=== PATIENT | female | born 1935 | race Caucasian/White ===

== ENCOUNTER → 2017-05-17 | Outpatient (CLI) | payer MEDICARE ==
[~2017-05-17] MED LIST: ALDACTONE25 MG PO; AMOXICILLIN 25250 M1 PO; APAP500 PO; APAP650; APAP650 PO; ATORVASTATIN CA20 MG PO; BACTRIM DS TAB1 EACH PO; BENTYL 10 MG CA10 M1; BIOTIN2500 MCG PO; BISACODYL SUPP10 MG RE; CALCIUM 600 +1 EA11 PO; CITRUCEL500 MG; COLLAGEN HYDROLY1 GM; COMBIGAN EYE DR10 ML OP; COUMADIN 4 MG TA4 M1 PO; CRANBERRY400 MG; FIBER0.52 G1 PO; FLORANEX TABLE1 EACH PO; FOSINOPRIL SODI40 M1 PO; GINKGO BILOBA120 M1 PO; HYDROCODONE-AP1 EAC6 PO; IRON325 PO; L-TRYPTOPHAN500 MG PO; LASIX 40 MG TAB40 M2; MACROBID 100 M100 M1 PO; MELATONIN10 M2 PO; MULTIVITAMINS1 EAC7 PO; NORCO 5-325 TA1 EACH PO; NORVASC 5 MG TAB5 MG PO; OCUVITE LUTEIN1 EAC1 PO; PROBIOTIC1 EAC1 PO; RESTASIS1 EACH OP; RESVERATROL1 GM; STOOL SOFTENER50 MG PO; TAMSULOSIN HCL0.4 M1 PO; TOPROL XL50 MG PO; TRAVOPROST 0.02.5 ML OP; TYLENOL PM PO; ULTRAM 50MG TAB50 MG PO; VITAMIN D-32000 UNIT PO; ZESTRIL40 MG; ZOFRAN4 MG PO
== END ==
LOC: M.ULTRA 04-19 12:37
DX: I25.10 Atherosclerotic heart disease of native coronary artery without angina pectoris (principal); M81.0 Age-related osteoporosis without current pathological fracture; M85.89 Other specified disorders of bone density and structure, multiple sites; I65.23 Occlusion and stenosis of bilateral carotid arteries; I70.90 Unspecified atherosclerosis; I77.9 Disorder of arteries and arterioles, unspecified; I10 Essential (primary) hypertension; Z78.0 Asymptomatic menopausal state

== ENCOUNTER → 2017-11-01 | Outpatient (CLI) | payer MEDICARE | LOC: M.RAD 10:53 | DX: Z12.31 Encounter for screening mammogram for malignant neoplasm of breast (principal); I10 Essential (primary) hypertension; E78.5 Hyperlipidemia, unspecified ==

== ENCOUNTER → 2017-12-17 | Outpatient (CLI) | payer MEDICARE | LOC: M.LAB 00:38 | DX: Z01.812 Encounter for preprocedural laboratory examination (principal) ==

== ENCOUNTER → 2018-11-03 | Outpatient (CLI) | payer MEDICARE | LOC: M.RAD 11-01 11:00 | DX: Z12.31 Encounter for screening mammogram for malignant neoplasm of breast (principal) ==

== ENCOUNTER → 2019-02-13 | Outpatient (CLI) | payer MEDICARE | LOC: M.RAD 12:29 | DX: M47.816 Spondylosis without myelopathy or radiculopathy, lumbar region (principal); M41.86 Other forms of scoliosis, lumbar region; G89.29 Other chronic pain ==

== ENCOUNTER → 2019-02-28 | Outpatient (CLI) | payer MEDICARE | LOC: M.CT 02-24 11:30 | DX: M41.86 Other forms of scoliosis, lumbar region (principal); M51.36 Other intervertebral disc degeneration, lumbar region; K57.30 Diverticulosis of large intestine without perforation or abscess without bleeding; K46.9 Unspecified abdominal hernia without obstruction or gangrene; M43.27 Fusion of spine, lumbosacral region; M43.8X4 Other specified deforming dorsopathies, thoracic region ==

== ENCOUNTER 2019-03-05 11:34 | Observation (INO) | payer MEDICARE ==
[~2019-03-05] VITALS: Ht 165.1 cm; Wt 82.6 kg
[~2019-03-05 11:34] MED LIST changes: -BENTYL 10 MG CA10 M1; +BENTYL 10 MG CA10 M1 PO; -BISACODYL SUPP10 MG RE; -CITRUCEL500 MG; +CITRUCEL500 MG PO; -CRANBERRY400 MG; +CRANBERRY400 MG PO; +DULCOLAX10 MG RECTAL; -NORVASC 5 MG TAB5 MG PO; +NORVASC5 MG PO; -RESVERATROL1 GM; +RESVERATROL1 GM PO; +STOOL SOFTENER100 M1 PO; -STOOL SOFTENER50 MG PO; -VITAMIN D-32000 UNIT PO; +VITAMIN D22000 UNIT PO; -ZESTRIL40 MG; +ZESTRIL40 MG PO
[2019-03-05 11:41] VITALS: BP 231/115
[2019-03-05 12:09] LABS: INFLUENZA A ANTIGEN Negative (Negative); INFLUENZA B ANTIGEN Negative (Negative)
[2019-03-05 12:21] LABS: ABSOLUTE EOSINOPHILS 0.1 thou/uL (0.0-0.7); ABSOLUTE LYMPHOCYTES 1.1 thou/uL (0.8-5.3); ABSOLUTE MONOCYTES 0.9 thou/uL (0.0-1.2); ABSOLUTE NEUTROPHILS 2.4 thou/uL (1.6-8.1); BASOPHILS 0.6 %; EOSINOPHILS 1.2 %; HEMATOCRIT 36.6 % (37.0-47.0); HEMOGLOBIN 12.5 gm/dL (12.0-15.0); LYMPHOCYTES 25.4 %; MCV 91.2 fL (80.0-100.0); MONOCYTES 19.8 %; MPV 7.6 fl. (7.2-11.1); NUCLEATED RBCS 0 /100WBC; PLATELET COUNT* 273 thou/uL (150-400); RBC 4.02 mil/uL (4.20-5.00); RDW-CV 13.1 % (10.5-14.5); WBC 4.5 thou/uL (4.0-11.0)
[2019-03-05 12:27] LABS: PROTIME 10.1 Seconds (9.20-11.50)
[2019-03-05 12:29] LABS: CALCIUM 7.8 mg/dL (8.5-10.1); CREATININE 0.8 mg/dL (0.6-1.3)
[2019-03-05 12:38] LABS: URINE BILIRUBIN NEGATIVE (Negative); URINE BLOOD NEGATIVE (Negative); URINE CLARITY CLEAR; URINE COLOR YELLOW; URINE GLUCOSE-RANDOM NEGATIVE (Negative); URINE KETONES 1+ (Negative); URINE LEUKOCYTES-REFLEX NEGATIVE (Negative); URINE NITRITE-REFLEX NEGATIVE (Negative); URINE PROTEIN NEGATIVE (Negative); URINE UROBILINOGEN 0.2 E.U./dl (0.2-1.0)
[2019-03-05 12:42] LABS: TOTAL BILIRUBIN 0.2 mg/dL (<0.1-1.0); TOTAL PROTEIN 6.4 g/dL (6.4-8.2)
[2019-03-05 17:21] VITALS: BP 193/98
[2019-03-05 18:00] VITALS: BP 160/77
[2019-03-05 19:30] VITALS: BP 180/70
[2019-03-06] VITALS: BP 140/64
[2019-03-06 05:47] LABS: ABSOLUTE LYMPHOCYTES 0.7 thou/uL (0.8-5.3); ABSOLUTE MONOCYTES 0.2 thou/uL (0.0-1.2); ABSOLUTE NEUTROPHILS 3.5 thou/uL (1.6-8.1); BASOPHILS 0.1 %; HEMATOCRIT 37.8 % (37.0-47.0); LYMPHOCYTES 16.2 %; MCH 31.1 pg (26.0-34.0); MCHC 34.4 g/dL (28.0-37.0); MCV 90.3 fL (80.0-100.0); MONOCYTES 5.1 %; MPV 8.1 fl. (7.2-11.1); NUCLEATED RBCS 0 /100WBC; PLATELET COUNT* 298 thou/uL (150-400); POLYS 78.6 %; RBC 4.19 mil/uL (4.20-5.00); RDW-CV 12.9 % (10.5-14.5); WBC 4.5 thou/uL (4.0-11.0)
[2019-03-06 05:58] LABS: CALCIUM 7.9 mg/dL (8.5-10.1); CREATININE 0.6 mg/dL (0.6-1.3); POTASSIUM 4.3 mmol/L (3.5-5.1)
[2019-03-06 07:10] VITALS: BP 192/75
--- NOTE | 2019-03-06 10:12 | EKG ---
[place] [address] ELECTROCARDIOGRAM REPORT Name: ERNESTO LAM Room: [address] ADM IN M.R.#: [id number] Admission: 03/05/19 Attend Phys: Pedro Devlin Discharge: Date of : 33 Report #: [id number] THIS REPORT FOR: //name// [facility] ED Test Date: 2019-03-05 Test Time: 12:03:10 Pat Name: ERNESTO WYATT Department: Room: [facility] Gender: F Med Dir: : 1935 Requested By: Bulmaro Feng Order Number: [id number] MD: Altaf Cobian Measurements Intervals [place] Rate: 69 P: 39 [place]: 170 QRS: -30 QRSD: 88 T: 14 QT: 369 QTc: 396 Interpretive Statements Sinus rhythm Left axis deviation Borderline T abnormalities, anterior leads Compared to ECG 03/23/2015 19:41:50 no change Electronically Signed On 03-06-2019 10:11:30 VOICE SYSTEMS ENGINEER by Altaf Cobian [email or web address] <ELECTRONICALLY SIGNED> By: Altaf Cobian MD, [facility] 03/06/19 1011 1203 1203 Altaf Cobian MD, [facility] /EPI
[2019-03-06 12:05] VITALS: BP 192/75
[2019-03-06] MEDS ORDERED: PROAIR HFA8.5 GM INH (14:14)
[2019-03-06] MEDS ORDERED: MUCINEX1200 MG PO (14:14)
[2019-03-06] MEDS ORDERED: MEDROL DOSPAK21 TA1 PO (14:14)
[2019-03-06 15:07] VITALS: BP 192/75
== END 2019-03-06 15:05 | disposition home or self-care (01) ==
LOC: M.ERS 11:34 → M.3W 13:35 → M.TBA-ER 13:35 → M.3W 17:38
PROVIDERS: Family Medicine; ADMIT Family Medicine
DX: J06.9 Acute upper respiratory infection, unspecified (principal); R53.1 Weakness; E86.0 Dehydration; I10 Essential (primary) hypertension; E78.5 Hyperlipidemia, unspecified; K59.00 Constipation, unspecified; H40.9 Unspecified glaucoma; Z87.891 Personal history of nicotine dependence

== ENCOUNTER → 2019-11-06 | Outpatient (CLI) | payer MEDICARE ==
[~2019-11-06] MED LIST changes: +MEDROL DOSPAK21 TA1 PO; +MUCINEX1200 MG PO; +PROAIR HFA8.5 GM INH
== END ==
LOC: M.RAD 12:35
PROVIDERS: ATTEND Internal Medicine
DX: Z12.31 Encounter for screening mammogram for malignant neoplasm of breast (principal)

== ENCOUNTER → 2020-02-26 | Outpatient (CLI) | payer MEDICARE ==
[~2020-02-26] MED LIST changes: +IBUPROFEN 400400 M1 PO; +POTASSIUM99 M1 PO; +TYLENOL325 M1 PO
== END ==
LOC: M.PC 09:50
PROVIDERS: ATTEND Physical Medicine & Rehabilitation
DX: M16.12 Unilateral primary osteoarthritis, left hip (principal); M41.86 Other forms of scoliosis, lumbar region; M48.061 Spinal stenosis, lumbar region without neurogenic claudication; M25.78 Osteophyte, vertebrae; M16.0 Bilateral primary osteoarthritis of hip; M47.816 Spondylosis without myelopathy or radiculopathy, lumbar region; Z96.641 Presence of right artificial hip joint

== ENCOUNTER → 2020-03-04 | Outpatient (CLI) | payer MEDICARE | END | disposition home or self-care (01) | LOC: M.PC 08:22 | PROVIDERS: ATTEND Physical Medicine & Rehabilitation | DX: M53.3 Sacrococcygeal disorders, not elsewhere classified (principal); M46.1 Sacroiliitis, not elsewhere classified ==

== ENCOUNTER → 2020-04-22 | Outpatient (CLI) | payer MEDICARE | LOC: M.PC 04-08 09:00 | PROVIDERS: ATTEND Physical Medicine & Rehabilitation | DX: M47.816 Spondylosis without myelopathy or radiculopathy, lumbar region (principal); M53.3 Sacrococcygeal disorders, not elsewhere classified ==

== ENCOUNTER → 2020-08-19 | Outpatient (CLI) | payer MEDICARE | LOC: M.CT 13:43 | PROVIDERS: ATTEND Internal Medicine | DX: K44.9 Diaphragmatic hernia without obstruction or gangrene (principal); R10.32 Left lower quadrant pain; J98.11 Atelectasis; M54.5 Low back pain; M47.815 Spondylosis without myelopathy or radiculopathy, thoracolumbar region; Z96.641 Presence of right artificial hip joint ==

== ENCOUNTER 2020-10-28 10:44 | Inpatient (IN) | payer MEDICARE ==
[~2020-10-28] VITALS: Ht 154.9 cm; Wt 82.6 kg
[~2020-10-28 10:44] MED LIST changes: -LASIX 40 MG TAB40 M2; +LASIX 40 MG TAB40 M2 PO; -MULTIVITAMINS1 EAC7 PO; +SUPER THERAVIT1 EACH PO
[2020-10-28 10:52] VITALS: BP 167/88
[2020-10-28] MEDS ORDERED: PRILOSEC OTC20 MG PO (10:57)
[2020-10-28] MEDS ORDERED: LIPITOR20 MG PO (10:58)
[2020-10-28] MEDS ORDERED: TOPROL XL25 MG PO (10:58)
[2020-10-28 11:21] LABS: ABSOLUTE BASOPHILS 0.1 thou/uL (0.0-0.2); ABSOLUTE MONOCYTES 1.3 thou/uL (0.0-1.2); BASOPHILS 0.6 %; HEMOGLOBIN 13.1 gm/dL (12.0-15.0); LYMPHOCYTES 7.7 %; MCH 29.7 pg (26.0-34.0); MCHC 32.8 g/dL (28.0-37.0); MCV 90.6 fL (80.0-100.0); MONOCYTES 9.8 %; MPV 7.5 fl. (7.2-11.1); NUCLEATED RBCS 0 /100WBC; PLATELET COUNT* 284 thou/uL (150-400); POLYS 81.9 %; RBC 4.42 mil/uL (4.20-5.00); RDW-CV 13.7 % (10.5-14.5); WBC 13.4 thou/uL (4.0-11.0)
[2020-10-28 11:30] LABS: CALCIUM 8.8 mg/dL (8.5-10.1); CREATININE 0.7 mg/dL (0.6-1.3); POTASSIUM 4.4 mmol/L (3.5-5.1)
[2020-10-28 11:33] LABS: URINE BILIRUBIN NEGATIVE (Negative); URINE BLOOD 1+ (Negative); URINE CLARITY SL CLOUDY; URINE COLOR YELLOW; URINE GLUCOSE-RANDOM NEGATIVE (Negative); URINE KETONES 3+ (Negative); URINE LEUKOCYTES-REFLEX 2+ (Negative); URINE NITRITE-REFLEX POSITIVE (Negative); URINE PROTEIN 1+ (Negative); URINE SPECIFIC GRAVITY 1.025 (1.005-1.030); URINE UROBILINOGEN 0.2 E.U./dl (0.2-1.0)
[2020-10-28 11:52] LABS: BACTERIA-REFLEX >30 Many /HPF (None Seen); SQUAMOUS 0-3 Few /LPF (0-3); URINE RBC 3-10 Few /HPF (0-2)
[2020-10-28] MEDS ORDERED: FISH OIL 1,0001 EAC9 PO (11:52)
[2020-10-28 11:53] LABS: CASTS None Seen /LPF (None Seen); CRYSTALS None Seen /LPF (None Seen); MUCUS 0-3 Light strn/LPF (None Seen)
[2020-10-28] MEDS ORDERED: VITAMIN C1000 MG PO (12:00)
[2020-10-28] MEDS ORDERED: CALCIUM D-GLUC500 MG PO (12:01)
[2020-10-28] MEDS ORDERED: CRANBERRY CONC500 MG PO (12:03)
[2020-10-28] MEDS ORDERED: IBUPROFEN 600600 M1 PO (12:06)
[2020-10-28] MEDS ORDERED: COQ-10100 MG PO (12:07)
[2020-10-28] MEDS ORDERED: PROBIOTIC1 EAC7 PO (12:08)
[2020-10-28] MEDS ORDERED: BENTYL 10 MG CA10 M1 PO (12:09)
[2020-10-28] MEDS ORDERED: CITRUCEL479 GM PO (12:11)
[2020-10-28] MEDS ORDERED: CURCUMIN1 GM PO (12:12)
[2020-10-28] MEDS ORDERED: COLESTIPOL HCL1 G1 PO (12:13)
[2020-10-28] MEDS ORDERED: FOCUS FACTOR PO (12:14)
[2020-10-28] MEDS ORDERED: FOSAMAX 70 MG T70 MG PO (12:15)
[2020-10-28] MEDS ORDERED: TYLENOL PM EX-1 EACH PO (12:22)
[2020-10-28] MEDS ORDERED: VYZULTA5 ML OPHTHALMIC (12:22)
--- NOTE | 2020-10-28 12:53 | EKG ---
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 : 1935 Requested By: Chuck Vargas Order Number: [id number] MD: Oren Kincaid Measurements Intervals [place] Rate: 115 P: 60 [place]: 170 QRS: 33 QRSD: 109 T: 38 QT: 311 QTc: 430 Interpretive Statements Sinus tachycardia Premature ventricular complexes Borderline low voltage, extremity leads Baseline wander in lead(s) III,aVF Compared to ECG 03/05/2019 12:03:10 Left-axis deviation no longer present T-wave abnormality no longer present Electronically Signed On 10-28-2020 12:53:26 CDT by Oren Kincaid [email or web address] <ELECTRONICALLY SIGNED> By: Oren Kincaid MD, FACC 10/28/20 1253 1059 1059 Oren Kincaid MD, [facility] /EPI
[2020-10-28 16:45] VITALS: BP 143/65
[2020-10-28 20:29] VITALS: BP 132/68
[2020-10-28 21:10] VITALS: BP 132/68
[2020-10-28 21:40] VITALS: BP 135/72
[2020-10-29] VITALS (7 sets, daily range): BP systolic 118–169; BP diastolic 49–81
[2020-10-29] MEDS ORDERED: TIMOLOL 0.5%-DO10 ML EA. EYE (00:13)
[2020-10-29 07:39] LABS: CALCIUM 8.1 mg/dL (8.5-10.1); CREATININE 0.7 mg/dL (0.6-1.3); POTASSIUM 3.7 mmol/L (3.5-5.1)
[2020-10-29 07:42] LABS: MAGNESIUM 2.2 mg/dL (1.8-2.4)
[2020-10-29 15:49] LABS: ABSOLUTE LYMPHOCYTES 0.7 thou/uL (0.8-5.3); ABSOLUTE MONOCYTES 1.6 thou/uL (0.0-1.2); ABSOLUTE NEUTROPHILS 10.5 thou/uL (1.6-8.1); BASOPHILS 0.3 %; EOSINOPHILS 0.1 %; HEMATOCRIT 33.1 % (37.0-47.0); LYMPHOCYTES 5.3 %; MCHC 33.2 g/dL (28.0-37.0); MCV 90.3 fL (80.0-100.0); MONOCYTES 12.6 %; MPV 7.6 fl. (7.2-11.1); NUCLEATED RBCS 0 /100WBC; PLATELET COUNT* 253 thou/uL (150-400); POLYS 81.7 %; RBC 3.66 mil/uL (4.20-5.00); RDW-CV 13.7 % (10.5-14.5); WBC 12.8 thou/uL (4.0-11.0)
[2020-10-30 03:46] VITALS: BP 137/60
[2020-10-30 08:03] VITALS: BP 184/85
[2020-10-30 11:48] VITALS: BP 163/79
[2020-10-30 16:00] VITALS: BP 175/97
[2020-10-30 20:00] VITALS: BP 171/84
[2020-10-31] VITALS: BP 150/72
[2020-10-31 04:07] VITALS: BP 165/82
[2020-10-31 07:24] LABS: ABSOLUTE EOSINOPHILS 0.3 thou/uL (0.0-0.7); ABSOLUTE LYMPHOCYTES 1.1 thou/uL (0.8-5.3); ABSOLUTE MONOCYTES 1.1 thou/uL (0.0-1.2); ABSOLUTE NEUTROPHILS 7.1 thou/uL (1.6-8.1); BASOPHILS 0.4 %; EOSINOPHILS 3.1 %; HEMATOCRIT 34.6 % (37.0-47.0); HEMOGLOBIN 11.3 gm/dL (12.0-15.0); LYMPHOCYTES 11.7 %; MCH 29.4 pg (26.0-34.0); MCHC 32.7 g/dL (28.0-37.0); MCV 89.9 fL (80.0-100.0); MONOCYTES 11.2 %; MPV 7.7 fl. (7.2-11.1); NUCLEATED RBCS 0 /100WBC; PLATELET COUNT* 315 thou/uL (150-400); POLYS 73.6 %; RBC 3.85 mil/uL (4.20-5.00); RDW-CV 13.4 % (10.5-14.5); WBC 9.7 thou/uL (4.0-11.0)
[2020-10-31 07:37] LABS: CALCIUM 8.4 mg/dL (8.5-10.1); CREATININE 0.6 mg/dL (0.6-1.3); POTASSIUM 3.7 mmol/L (3.5-5.1)
[2020-10-31 08:00] VITALS: BP 164/78
[2020-10-31 12:00] VITALS: BP 166/83
[2020-10-31 16:00] VITALS: BP 168/75
[2020-10-31 20:00] VITALS: BP 170/71
[2020-11-01 01:19] VITALS: BP 153/79
[2020-11-01 04:53] VITALS: BP 173/84
[2020-11-01 08:30] LABS: ABSOLUTE BASOPHILS 0.1 thou/uL (0.0-0.2); ABSOLUTE EOSINOPHILS 0.3 thou/uL (0.0-0.7); ABSOLUTE LYMPHOCYTES 0.8 thou/uL (0.8-5.3); ABSOLUTE NEUTROPHILS 7.1 thou/uL (1.6-8.1); BASOPHILS 0.6 %; EOSINOPHILS 3.3 %; HEMATOCRIT 34.7 % (37.0-47.0); HEMOGLOBIN 11.5 gm/dL (12.0-15.0); LYMPHOCYTES 8.5 %; MCH 29.6 pg (26.0-34.0); MCHC 33.2 g/dL (28.0-37.0); MCV 89.3 fL (80.0-100.0); MONOCYTES 10.7 %; MPV 7.6 fl. (7.2-11.1); NUCLEATED RBCS 0 /100WBC; PLATELET COUNT* 337 thou/uL (150-400); POLYS 76.9 %; RBC 3.89 mil/uL (4.20-5.00); RDW-CV 13.6 % (10.5-14.5); WBC 9.2 thou/uL (4.0-11.0)
[2020-11-01 09:20] LABS: ALBUMIN 2.2 g/dL (3.4-5.0); CALCIUM 8.4 mg/dL (8.5-10.1); CREATININE 0.5 mg/dL (0.6-1.3); TOTAL BILIRUBIN 0.3 mg/dL (<0.1-1.0)
[2020-11-01 12:25] VITALS: BP 145/80
[2020-11-01 17:03] VITALS: BP 158/66
[2020-11-01 20:00] VITALS: BP 163/83
[2020-11-02 00:26] VITALS: BP 129/63
[2020-11-02 04:29] VITALS: BP 183/81
[2020-11-02 08:00] VITALS: BP 137/61
[2020-11-02 11:31] LABS: ALBUMIN 2.5 g/dL (3.4-5.0); CALCIUM 8.4 mg/dL (8.5-10.1); CREATININE 0.7 mg/dL (0.6-1.3); POTASSIUM 3.9 mmol/L (3.5-5.1); TOTAL BILIRUBIN 0.2 mg/dL (<0.1-1.0); TOTAL PROTEIN 5.6 g/dL (6.4-8.2)
[2020-11-02 12:03] LABS: HEMATOCRIT 33.7 % (37.0-47.0); HEMOGLOBIN 11.3 gm/dL (12.0-15.0); MCH 29.7 pg (26.0-34.0); MCHC 33.4 g/dL (28.0-37.0); MCV 89.1 fL (80.0-100.0); MPV 7.2 fl. (7.2-11.1); NUCLEATED RBCS 0 /100WBC; PLATELET COUNT* 348 thou/uL (150-400); RBC 3.78 mil/uL (4.20-5.00); RDW-CV 13.7 % (10.5-14.5); WBC 13.6 thou/uL (4.0-11.0)
[2020-11-02 12:23] VITALS: BP 164/72
[2020-11-02 12:23] LABS: ABSOLUTE MONOCYTES 1.4 thou/uL (0.0-1.2); ABSOLUTE NEUTROPHILS 11.3 thou/uL (1.6-8.1)
[2020-11-02 12:24] LABS: PLATELET ESTIMATE ADEQUATE
[2020-11-02 17:35] VITALS: BP 154/73
[2020-11-02 20:40] VITALS: BP 155/75
[2020-11-03] VITALS: BP 157/76
[2020-11-03 04:00] VITALS: BP 162/70
[2020-11-03 04:30] LABS: ALBUMIN 2.2 g/dL (3.4-5.0); CALCIUM 8.3 mg/dL (8.5-10.1); CREATININE 0.6 mg/dL (0.6-1.3); POTASSIUM 3.5 mmol/L (3.5-5.1); TOTAL BILIRUBIN 0.2 mg/dL (<0.1-1.0); TOTAL PROTEIN 5.9 g/dL (6.4-8.2)
[2020-11-03 04:31] LABS: ABSOLUTE EOSINOPHILS 0.1 thou/uL (0.0-0.7); ABSOLUTE LYMPHOCYTES 1.1 thou/uL (0.8-5.3); ABSOLUTE MONOCYTES 1.5 thou/uL (0.0-1.2); ABSOLUTE NEUTROPHILS 14.3 thou/uL (1.6-8.1); BASOPHILS 0.3 %; EOSINOPHILS 0.5 %; HEMATOCRIT 33.3 % (37.0-47.0); HEMOGLOBIN 10.8 gm/dL (12.0-15.0); LYMPHOCYTES 6.2 %; MCHC 32.5 g/dL (28.0-37.0); MCV 89.2 fL (80.0-100.0); MONOCYTES 8.8 %; MPV 7.6 fl. (7.2-11.1); NUCLEATED RBCS 0 /100WBC; PLATELET COUNT* 374 thou/uL (150-400); POLYS 84.2 %; RBC 3.73 mil/uL (4.20-5.00); RDW-CV 13.8 % (10.5-14.5)
[2020-11-03 05:22] LABS: PREALBUMIN 10.5 mg/dL (18.0-35.7)
[2020-11-03 08:00] VITALS: BP 145/72
[2020-11-03 12:17] VITALS: BP 148/71
[2020-11-03 17:09] VITALS: BP 143/71
[2020-11-03 21:00] VITALS: BP 147/67
[2020-11-04] VITALS (7 sets, daily range): BP systolic 139–166; BP diastolic 52–78
[2020-11-04 05:06] LABS: ALBUMIN 1.9 g/dL (3.4-5.0); CALCIUM 7.9 mg/dL (8.5-10.1); CREATININE 0.6 mg/dL (0.6-1.3); POTASSIUM 3.7 mmol/L (3.5-5.1); TOTAL BILIRUBIN 0.2 mg/dL (<0.1-1.0); TOTAL PROTEIN 5.7 g/dL (6.4-8.2)
[2020-11-04 05:07] LABS: ABSOLUTE BASOPHILS 0.1 thou/uL (0.0-0.2); ABSOLUTE EOSINOPHILS 0.2 thou/uL (0.0-0.7); ABSOLUTE LYMPHOCYTES 1.2 thou/uL (0.8-5.3); ABSOLUTE MONOCYTES 1.1 thou/uL (0.0-1.2); ABSOLUTE NEUTROPHILS 12.6 thou/uL (1.6-8.1); BASOPHILS 0.4 %; EOSINOPHILS 1.1 %; HEMOGLOBIN 10.4 gm/dL (12.0-15.0); LYMPHOCYTES 8.2 %; MCHC 32.6 g/dL (28.0-37.0); MONOCYTES 7.2 %; MPV 7.9 fl. (7.2-11.1); NUCLEATED RBCS 0 /100WBC; PLATELET COUNT* 385 thou/uL (150-400); POLYS 83.1 %; RDW-CV 13.7 % (10.5-14.5); WBC 15.2 thou/uL (4.0-11.0)
[2020-11-05 04:16] LABS: HEMATOCRIT 31.9 % (37.0-47.0); HEMOGLOBIN 10.6 gm/dL (12.0-15.0); MCH 29.6 pg (26.0-34.0); MCHC 33.4 g/dL (28.0-37.0); MCV 88.5 fL (80.0-100.0); MPV 7.4 fl. (7.2-11.1); RBC 3.6 mil/uL (4.20-5.00); RDW-CV 13.6 % (10.5-14.5); WBC 10.7 thou/uL (4.0-11.0)
[2020-11-05 04:31] VITALS: BP 139/62
[2020-11-05 04:35] LABS: CALCIUM 8.1 mg/dL (8.5-10.1); CREATININE 0.5 mg/dL (0.6-1.3); POTASSIUM 3.4 mmol/L (3.5-5.1)
[2020-11-05 08:00] VITALS: BP 153/74
[2020-11-05 12:26] VITALS: BP 156/72
[2020-11-05 15:43] VITALS: BP 137/56
[2020-11-05 20:29] VITALS: BP 150/71
[2020-11-06 00:06] VITALS: BP 129/61
[2020-11-06 04:35] LABS: HEMATOCRIT 32.4 % (37.0-47.0); HEMOGLOBIN 10.9 gm/dL (12.0-15.0); MCH 29.6 pg (26.0-34.0); MCHC 33.6 g/dL (28.0-37.0); MCV 88.3 fL (80.0-100.0); MPV 7.6 fl. (7.2-11.1); RBC 3.67 mil/uL (4.20-5.00); RDW-CV 13.9 % (10.5-14.5)
[2020-11-06 04:41] VITALS: BP 148/68
[2020-11-06 05:00] LABS: CREATININE 0.5 mg/dL (0.6-1.3); POTASSIUM 3.5 mmol/L (3.5-5.1)
[2020-11-06 08:00] VITALS: BP 162/77
[2020-11-06 11:20] VITALS: BP 140/70
[2020-11-06 18:14] VITALS: BP 163/70
[2020-11-06 20:00] VITALS: BP 162/69
[2020-11-07] VITALS (7 sets, daily range): BP systolic 132–150; BP diastolic 64–74
[2020-11-07 04:12] LABS: HEMATOCRIT 33.8 % (37.0-47.0); HEMOGLOBIN 11.2 gm/dL (12.0-15.0); MCH 29.5 pg (26.0-34.0); MCHC 33.2 g/dL (28.0-37.0); MCV 88.9 fL (80.0-100.0); MPV 7.5 fl. (7.2-11.1); RBC 3.8 mil/uL (4.20-5.00); RDW-CV 13.8 % (10.5-14.5); WBC 9.4 thou/uL (4.0-11.0)
[2020-11-07 04:26] LABS: CREATININE 0.6 mg/dL (0.6-1.3); POTASSIUM 3.5 mmol/L (3.5-5.1)
[2020-11-08 01:10] VITALS: BP 147/63
[2020-11-08 05:23] VITALS: BP 144/67
[2020-11-08 08:00] VITALS: BP 138/75
[2020-11-08 12:00] VITALS: BP 124/65
[2020-11-08 17:00] VITALS: BP 141/72
[2020-11-08 20:00] VITALS: BP 144/73
[2020-11-09 00:48] VITALS: BP 121/60
[2020-11-09 06:20] VITALS: BP 137/63
[2020-11-09 08:30] VITALS: BP 164/63
[2020-11-09 12:00] VITALS: BP 140/75
[2020-11-09 14:34] LABS: HEMATOCRIT 36.5 % (37.0-47.0); MCH 29.2 pg (26.0-34.0); MCHC 32.7 g/dL (28.0-37.0); MCV 89.1 fL (80.0-100.0); MPV 7.5 fl. (7.2-11.1); NUCLEATED RBCS 0 /100WBC; PLATELET COUNT* 589 thou/uL (150-400); RDW-CV 14.2 % (10.5-14.5); WBC 15.7 thou/uL (4.0-11.0)
[2020-11-09 14:42] LABS: ALBUMIN 2.5 g/dL (3.4-5.0); CALCIUM 8.2 mg/dL (8.5-10.1); CREATININE 0.7 mg/dL (0.6-1.3); MAGNESIUM 1.6 mg/dL (1.8-2.4); POTASSIUM 3.8 mmol/L (3.5-5.1); TOTAL BILIRUBIN 0.2 mg/dL (<0.1-1.0); TOTAL PROTEIN 6.2 g/dL (6.4-8.2)
[2020-11-09 15:08] LABS: ABSOLUTE EOSINOPHILS 0.2 thou/uL (0.0-0.7); ABSOLUTE LYMPHOCYTES 2.2 thou/uL (0.8-5.3); ABSOLUTE MONOCYTES 0.9 thou/uL (0.0-1.2); ABSOLUTE NEUTROPHILS 12.4 thou/uL (1.6-8.1); PLATELET ESTIMATE INCREASED
[2020-11-09 16:00] VITALS: BP 159/78
[2020-11-09 20:00] VITALS: BP 144/67
[2020-11-10] VITALS (7 sets, daily range): BP systolic 118–151; BP diastolic 63–82
[2020-11-10] MEDS ORDERED: FUROSEMIDE 20 M20 MG PO (17:16)
[2020-11-10] MEDS ORDERED: LEVOTHYROXINE125 MC1 PO (17:19)
[2020-11-11 03:51] VITALS: BP 130/70
[2020-11-11 04:19] LABS: HEMATOCRIT 33.4 % (37.0-47.0); HEMOGLOBIN 11.1 gm/dL (12.0-15.0); MCH 29.6 pg (26.0-34.0); MCHC 33.2 g/dL (28.0-37.0); MCV 89.2 fL (80.0-100.0); MPV 7.5 fl. (7.2-11.1); RBC 3.75 mil/uL (4.20-5.00); RDW-CV 14.1 % (10.5-14.5); WBC 8.3 thou/uL (4.0-11.0)
[2020-11-11 04:35] LABS: ALBUMIN 2.1 g/dL (3.4-5.0); CALCIUM 8.2 mg/dL (8.5-10.1); CREATININE 0.8 mg/dL (0.6-1.3); MAGNESIUM 1.6 mg/dL (1.8-2.4); POTASSIUM 4.1 mmol/L (3.5-5.1); TOTAL BILIRUBIN 0.2 mg/dL (<0.1-1.0); TOTAL PROTEIN 5.3 g/dL (6.4-8.2)
[2020-11-11 07:40] VITALS: BP 131/64
[2020-11-11 12:45] VITALS: BP 115/63
[2020-11-11 18:26] VITALS: BP 114/62
[2020-11-11 19:45] VITALS: BP 147/66
[2020-11-12 00:33] VITALS: BP 116/55
[2020-11-12 04:40] VITALS: BP 113/57
[2020-11-12 08:30] VITALS: BP 144/68
[2020-11-12] MEDS ORDERED: XANAX 0.25 MG0.25 MG PO (09:22)
[2020-11-12] MEDS ORDERED: ACIDOPHILUS1 EAC4 PO (09:22)
[2020-11-12] MEDS ORDERED: VANCOMYCIN HCL125 MG PO (09:22)
[2020-11-12] MEDS ORDERED: COLESTID1 GM PO (09:22)
[2020-11-12 12:55] VITALS: BP 113/57
[2020-11-12 12:59] VITALS: BP 113/57
[2020-11-12 13:05] VITALS: BP 113/57
== END 2020-11-12 13:15 | disposition home health service (06) | DRG 871 ==
LOC: M.ERS 10:44 → M.TBA-ER 12:35 → M.2W 12:35
PROVIDERS: Emergency Medicine Emergency Medical Services; Internal Medicine; ADMIT Internal Medicine; ATTEND Internal Medicine
PROC: 5A0935A Assistance with Respiratory Ventilation, Less than 24 Consecutive Hours, High Flow/Velocity Cannula (ICD-10-PCS; principal; 2020-10-30)
DX: A41.51 Sepsis due to Escherichia coli [E. coli] (principal); J18.9 Pneumonia, unspecified organism; N39.0 Urinary tract infection, site not specified; A04.72 Enterocolitis due to Clostridium difficile, not specified as recurrent; K57.32 Diverticulitis of large intestine without perforation or abscess without bleeding; I10 Essential (primary) hypertension; E78.5 Hyperlipidemia, unspecified; Z88.8 Allergy status to other drugs, medicaments and biological substances; Z20.822 Contact with and (suspected) exposure to COVID-19; K58.9 Irritable bowel syndrome, unspecified; Z87.81 Personal history of (healed) traumatic fracture

== ENCOUNTER 2021-02-05 11:06 | Emergency (ER) | payer MEDICARE ==
[~2021-02-05] VITALS: Ht 154.9 cm; Wt 79.4 kg
[~2021-02-05 11:06] MED LIST changes: +ACIDOPHILUS1 EAC4 PO; +CALCIUM D-GLUC500 MG PO; +CITRUCEL479 GM PO; +COLESTID1 GM PO; +COLESTIPOL HCL1 G1 PO; +COQ-10100 MG PO; +CRANBERRY CONC500 MG PO; +CURCUMIN1 GM PO; +FISH OIL 1,0001 EAC9 PO; +FOCUS FACTOR PO; +FOSAMAX 70 MG T70 MG PO; +FUROSEMIDE 20 M20 MG PO; +IBUPROFEN 600600 M1 PO; +LEVOTHYROXINE125 MC1 PO; +LIPITOR20 MG PO; +PRILOSEC OTC20 MG PO; +PROBIOTIC1 EAC7 PO; +TIMOLOL 0.5%-DO10 ML EA. EYE; +TOPROL XL25 MG PO; +TYLENOL PM EX-1 EACH PO; +VANCOMYCIN HCL125 MG PO; +VITAMIN C1000 MG PO; +VYZULTA5 ML OPHTHALMIC; +XANAX 0.25 MG0.25 MG PO
[2021-02-05] MEDS ORDERED: PROAIR HFA8.5 GM INH (11:27)
[2021-02-05 12:13] LABS: ABSOLUTE EOSINOPHILS 0.1 thou/uL (0.0-0.7); ABSOLUTE LYMPHOCYTES 1.4 thou/uL (0.8-5.3); ABSOLUTE MONOCYTES 0.7 thou/uL (0.0-1.2); ABSOLUTE NEUTROPHILS 5.7 thou/uL (1.6-8.1); BASOPHILS 0.6 %; EOSINOPHILS 1.1 %; HEMATOCRIT 39.8 % (37.0-47.0); HEMOGLOBIN 13.1 gm/dL (12.0-15.0); LYMPHOCYTES 17.4 %; MCH 29.2 pg (26.0-34.0); MCHC 32.9 g/dL (28.0-37.0); MCV 88.9 fL (80.0-100.0); MONOCYTES 8.8 %; MPV 7.5 fl. (7.2-11.1); NUCLEATED RBCS 0 /100WBC; PLATELET COUNT* 335 thou/uL (150-400); POLYS 72.1 %; RBC 4.48 mil/uL (4.20-5.00); RDW-CV 13.7 % (10.5-14.5); WBC 7.8 thou/uL (4.0-11.0)
[2021-02-05 12:45] LABS: CALCIUM 8.8 mg/dL (8.5-10.1); CREATININE 0.6 mg/dL (0.6-1.3); POTASSIUM 3.3 mmol/L (3.5-5.1)
[2021-02-05 12:48] LABS: TOTAL BILIRUBIN 0.4 mg/dL (<0.1-1.0); TOTAL PROTEIN 6.9 g/dL (6.4-8.2)
[2021-02-05 13:40] LABS: URINE BLOOD NEGATIVE (Negative); URINE CLARITY CLEAR; URINE COLOR YELLOW; URINE GLUCOSE-RANDOM NEGATIVE (Negative); URINE KETONES 2+ (Negative); URINE LEUKOCYTES NEGATIVE (Negative); URINE NITRITE NEGATIVE (Negative); URINE PROTEIN 2+ (Negative); URINE SPECIFIC GRAVITY 1.025 (1.005-1.030); URINE UROBILINOGEN 0.2 E.U./dl (0.2-1.0)
[2021-02-05 13:43] LABS: MAGNESIUM 1.8 mg/dL (1.8-2.4)
[2021-02-05 13:44] LABS: ICTOTEST (BILI CONFIRMATORY) Negative (Negative); URINE BILIRUBIN 2+ (Negative)
[2021-02-05 13:52] LABS: BACTERIA 1-9 Few /HPF (None Seen); MUCUS 4-6 Moderate strn/LPF (None Seen); SQUAMOUS >10 Many /LPF (0-3); URINE RBC 0-2 Rare /HPF (0-2); URINE WBC 0-5 Rare /HPF (0-5)
[2021-02-05 13:53] LABS: HYALINE CASTS 4-10 Moderate /LPF (None Seen)
[2021-02-05 13:54] LABS: CRYSTALS None Seen /LPF (None Seen)
[2021-02-05 15:25] VITALS: BP 182/87
--- NOTE | 2021-02-06 11:17 | EKG ---
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: : 1935 Requested By: Hazel Gaston Order Number: [id number] MD: Omsel Guerrero Measurements Intervals [place] Rate: 88 P: 32 [place]: 144 QRS: 0 QRSD: 93 T: 13 QT: 394 QTc: 477 Interpretive Statements Sinus rhythm Atrial premature complexes Borderline T abnormalities, anterior leads Borderline prolonged QT interval Baseline wander in lead(s) I,II,aVR Compared to ECG 10/28/2020 10:59:32 Atrial premature complex(es) now present T-wave abnormality now present Sinus tachycardia no longer present Ventricular premature complex(es) no longer present Electronically Signed On 02-06-2021 11:16:56 PRESSURE TESTER OPERATOR by Osmel Guerrero [email or web address] <ELECTRONICALLY SIGNED> By: Osmel Guerrero MD, [facility] 02/06/21 1116 28 132 Osmel Guerrero MD, [facility] /EPI
== END 2021-02-05 15:29 | disposition home or self-care (01) ==
LOC: M.ERS 11:06
PROVIDERS: Emergency Medicine; Physician Assistant
DX: J06.9 Acute upper respiratory infection, unspecified (principal); Z20.822 Contact with and (suspected) exposure to COVID-19; R53.1 Weakness; R19.7 Diarrhea, unspecified; I10 Essential (primary) hypertension; E78.5 Hyperlipidemia, unspecified; Z79.899 Other long term (current) drug therapy; Z88.6 Allergy status to analgesic agent